=== PATIENT | female | born 1990 | race African-American/Black ===

== ENCOUNTER 2017-10-22 09:24 | Emergency (ER) | payer BC, MEDICAID ==
[~2017-10-22] VITALS: Ht 165.1 cm; Wt 83.0 kg
[2017-10-22 11:08] VITALS: BP 113/70
== END 2017-10-22 11:08 | disposition home or self-care (01) ==
LOC: ER 09:37
DX: L21.0 Seborrhea capitis (principal)
CPT/HCPCS: 99283

== ENCOUNTER 2018-11-08 09:20 | Emergency (ER) | payer BC, MEDICAID ==
[~2018-11-08] VITALS: Ht 167.6 cm; Wt 83.7 kg
[2018-11-08] MEDS ORDERED: KETOROLAC 60MG/2ML VIAL IM ONE (10:15)
[2018-11-08 10:46] VITALS: BP 125/70
== END 2018-11-08 10:47 | disposition home or self-care (01) ==
LOC: ER 09:23
DX: S09.90XA Unspecified injury of head, initial encounter (principal); D64.9 Anemia, unspecified; Z98.890 Other specified postprocedural states; W22.8XXA Striking against or struck by other objects, initial encounter; Y93.89 Activity, other specified; Y92.89 Other specified places as the place of occurrence of the external cause; Y99.8 Other external cause status
CPT/HCPCS: 81025; 96372; 99283; J1885; 90471